=== PATIENT | female | born 1975 ===

== ENCOUNTER → 2022-03-26 15:07 | Outpatient (BNVA) | payer OTHER, SELFPAY | PROVIDERS: PCP Internal Medicine; Visit Provider Nurse Practitioner Family | DX: M62.838 Other muscle spasm (principal); M54.12 Radiculopathy, cervical region; M47.812 Spondylosis without myelopathy or radiculopathy, cervical region; M96.1 Postlaminectomy syndrome, not elsewhere classified | CPT/HCPCS: 99202 ==

== ENCOUNTER 2023-03-26 15:31 | Outpatient (AMB) | payer OTHER, SELFPAY ==
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
[2023-03-26 15:36] VITALS: BP 121/60; PULSE 80; O2SAT 97; BMI 23.0
== END 2023-03-26 16:14 | disposition home or self-care (01) ==
PROVIDERS: PCP Internal Medicine; Visit Provider Nurse Practitioner Family
DX: M96.1 Postlaminectomy syndrome, not elsewhere classified (principal); M47.812 Spondylosis without myelopathy or radiculopathy, cervical region; M54.12 Radiculopathy, cervical region; M62.838 Other muscle spasm; R20.0 Anesthesia of skin; R20.2 Paresthesia of skin
CPT/HCPCS: 99214

== ENCOUNTER → 2023-03-26 15:31 | Outpatient (BNVA) | payer OTHER, SELFPAY | PROVIDERS: PCP Internal Medicine; Visit Provider Nurse Practitioner Family | DX: M96.1 Postlaminectomy syndrome, not elsewhere classified (principal); M47.812 Spondylosis without myelopathy or radiculopathy, cervical region; M54.12 Radiculopathy, cervical region; M62.838 Other muscle spasm; R20.0 Anesthesia of skin; R20.2 Paresthesia of skin | CPT/HCPCS: 99212 ==

== ENCOUNTER 2023-05-27 15:22 | Outpatient (REF) | payer OTHER, SELFPAY | END 2023-05-27 15:23 | disposition home or self-care (01) | LOC: HO.NEURO 15:22 | PROVIDERS: PCP Internal Medicine; Visit Provider Nurse Practitioner Family | DX: R20.0 Anesthesia of skin (principal); R20.2 Paresthesia of skin; M96.1 Postlaminectomy syndrome, not elsewhere classified; M47.812 Spondylosis without myelopathy or radiculopathy, cervical region; M54.12 Radiculopathy, cervical region | CPT/HCPCS: 95886; 95911 ==

== ENCOUNTER → 2023-05-27 15:28 | Outpatient (BNV) | payer OTHER, SELFPAY | PROVIDERS: PCP Internal Medicine; Visit Provider Physical Medicine & Rehabilitation | DX: G56.03 Carpal tunnel syndrome, bilateral upper limbs (principal) | CPT/HCPCS: 95886; 95911 ==

== ENCOUNTER 2023-06-03 15:05 | Outpatient (AMB) | payer OTHER, SELFPAY ==
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
[2023-06-03 15:09] VITALS: BP 128/60; PULSE 60; O2SAT 98; BMI 22.0
== END 2023-06-03 15:26 | disposition home or self-care (01) ==
PROVIDERS: PCP Internal Medicine; Visit Provider Nurse Practitioner Family
DX: M96.1 Postlaminectomy syndrome, not elsewhere classified (principal); G56.03 Carpal tunnel syndrome, bilateral upper limbs; M62.838 Other muscle spasm; M47.812 Spondylosis without myelopathy or radiculopathy, cervical region
CPT/HCPCS: 99214

== ENCOUNTER → 2023-06-03 15:05 | Outpatient (BNVA) | payer OTHER, SELFPAY | PROVIDERS: PCP Internal Medicine; Visit Provider Nurse Practitioner Family | DX: M96.1 Postlaminectomy syndrome, not elsewhere classified (principal); M54.12 Radiculopathy, cervical region; M62.838 Other muscle spasm; M47.812 Spondylosis without myelopathy or radiculopathy, cervical region; G56.03 Carpal tunnel syndrome, bilateral upper limbs | CPT/HCPCS: 99212 ==

== ENCOUNTER 2023-06-30 18:08 | Outpatient (REF) | payer OTHER, SELFPAY ==
--- NOTE | ~2023-06-30 | MR_ITS ---
EXAMINATION: MR CERVICAL SPINE WITHOUT CONTRAST CLINICAL INFORMATION: Paresthesias, recent EMG findings suggestive for a left C8-T1 active radiculopathy COMPARISON: None TECHNIQUE: MRI of the cervical spine was obtained using routine sequences without contrast. FINDINGS: Post surgical changes status post C5-C6 ACDF. Nondiagnostic assessment of the hardware would be better evaluated on CT. The craniocervical junction is intact. Tightening of the normal cervical lordosis. Trace anterolisthesis at C3-C4. Vertebral body heights are normal without acute compression fracture. No suspicious osseous lesion. Multilevel disc desiccation with mild to moderate C4-C5 greater than C6-C7 disc height loss. Suggestion of right eccentric type I/II Modic endplate change at C5-C6, noting susceptibility artifact somewhat limits assessment. There is also slight type I Modic endplate change the left posteriorly at C6-C7. Level by level detail as follows: C2-C3: No spinal canal or neural foraminal stenosis. C3-C4: Minor uncovertebral spurring without spinal canal or neural foraminal stenosis. C4-C5: Disc osteophyte complex with broad-based posterior disc protrusion, bilateral uncovertebral joint hypertrophy, and mild bilateral facet hypertrophy. Mild spinal canal stenosis with slight ventral cord flattening, severe right and mild to moderate left neural foraminal stenosis. C5-C6: ACDF changes with osteophytic ridging and uncovertebral joint hypertrophy. No spinal canal stenosis. Mild to moderate left and mild right neural foraminal narrowing. C6-C7: Disc osteophyte complex with broad-based posterior disc protrusion eccentric to the left, and bilateral uncovertebral spurring. No spinal canal stenosis. Moderate left and mild right neural foraminal stenosis. C7-T1: No spinal canal or neural foraminal stenosis. No cord signal abnormality. No epidural fluid collection, mass, or hematoma. No significant abnormalities of the paraspinal musculature. The flow voids of the major cervical vessels are maintained. The visualized intracranial structures are normal. No demonstrated abnormalities in the visualized neck. MR/MR cervical spine wo con IMPRESSION: 1. Postsurgical changes status post C5-C6 ACDF. Nondiagnostic assessment of the hardware would be better evaluated on CT. Suggestion of right eccentric type I/II Modic endplate change at C5-C6, noting susceptibility artifact somewhat limits assessment. 2. At the superior junctional C4-C5 level, there is adjacent segment degeneration with spondylosis contributing to mild spinal canal stenosis with slight ventral cord flattening, severe right and mild to moderate left neural foraminal stenosis. 3. At the inferior junctional C6-C7 level, there is adjacent segment degeneration with spondylosis contributing to moderate left and mild right neural foraminal stenosis.
== END 2023-06-30 18:09 | disposition home or self-care (01) ==
LOC: HO.MRI 18:08
PROVIDERS: PCP Internal Medicine; Visit Provider Nurse Practitioner Family
DX: R20.0 Anesthesia of skin (principal); R20.2 Paresthesia of skin; M96.1 Postlaminectomy syndrome, not elsewhere classified; M54.12 Radiculopathy, cervical region
CPT/HCPCS: 72141

== ENCOUNTER 2023-07-09 14:34 | Outpatient (AMB) | payer OTHER, SELFPAY ==
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
[2023-07-09 14:41] VITALS: BP 106/55; PULSE 65; O2SAT 99; BMI 22.0
== END 2023-07-09 14:54 | disposition home or self-care (01) ==
PROVIDERS: PCP Internal Medicine; Visit Provider Nurse Practitioner Family
DX: M96.1 Postlaminectomy syndrome, not elsewhere classified (principal); M47.812 Spondylosis without myelopathy or radiculopathy, cervical region; M54.12 Radiculopathy, cervical region; M62.838 Other muscle spasm; G56.03 Carpal tunnel syndrome, bilateral upper limbs; M48.02 Spinal stenosis, cervical region
CPT/HCPCS: 99214

== ENCOUNTER → 2023-07-09 14:34 | Outpatient (BNVA) | payer OTHER, SELFPAY | PROVIDERS: PCP Internal Medicine; Visit Provider Nurse Practitioner Family | DX: M96.1 Postlaminectomy syndrome, not elsewhere classified (principal); M47.812 Spondylosis without myelopathy or radiculopathy, cervical region; M54.12 Radiculopathy, cervical region; M62.838 Other muscle spasm; M48.02 Spinal stenosis, cervical region; G56.03 Carpal tunnel syndrome, bilateral upper limbs | CPT/HCPCS: 99212 ==

== ENCOUNTER 2023-09-29 15:12 | Outpatient (AMB) | payer OTHER, SELFPAY ==
--- NOTE | 2023-09-29 15:13 | MHC.OFFVIS ---
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 States her CTS symptoms started approx 4 years ago and has worsen, especially at night time. No previous treatment. She expresses that her left hand is worse in numbness than her right hand. EMG done 05/27/23. 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 She is left-hand dominant. She states her left is worse than her right. 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 She states her symptoms are constant. [facility] Medical History Hypercholesterolemia Vitamin D deficiency Migraine headache Eating disorder Osteoarthritis cervical spine Diabetes mellitus with ophthalmic manifestation Intestinal malabsorption following gastrectomy Unilateral primary osteoarthritis, left knee Lumbar spondylosis Myofascial pain syndrome of lumbar spine Surgical History Hx of cervical discectomy H/O: hysterectomy H/O tubal ligation Hx of tonsillectomy Hx of gastric bypass Social History (Updated 09/29/23 @ 15:19 by David Wang) Alcohol intake: current Alcohol intake frequency: does not drink Patient Tobacco Use Status: Current everyday Tobacco user Tobacco use type: Cigarette Cigarettes Per Day: 5 Current occupational status: unemployed Current occupation: left hand dominant Review of Systems Const All systems reviewed & are unremarkable except as noted in HPI and below Physical Exam Const General: cooperative and no acute distress Orientation/consciousness: patient oriented x3 Resp Effort & Inspection: normal respiratory effort and able to speak in complete sentences Cardio Peripheral pulses: Peripheral pulses 2+ throughout Neuro General: patient oriented x3 Extrem Other: Bilat wrist normal to inspection. Tenderness over the carpal canal. Numbness and tingling over the median nerve distribution of the right hand. Able to make a full fist and fully extend all fingers. Positive Tinel's. Results Reviewed Results Reviewed: IMPRESSION: 1. This is an abnormal study. 2. There is electrodiagnostic evidence for bilateral moderate-severe median neuropathy at the wrist, consistent with Carpal Tunnel Syndrome. 3. There is no electrodiagnostic evidence for ulnar neuropathy, or brachial plexopathy. 4. There is electrodiagnostic findings suggestive for a left C8-T1 active radiculopathy. Assessment & Plan Assessment & Plan (1) Carpal tunnel syndrome, bilateral: Code(s): G56.03 - Carpal tunnel syndrome, bilateral upper limbs Category: Medical Plan We discussed options which include conservative vs operative treatment. Since the patient has been symptomatic for several months and it is impacting their daily life, the decision was made to undergo carpal tunnel release. We discussed risk, benefits and alternatives. Risk including but not limited to infection, weakness, stiffness, ongoing numbness or tingling. The patient does understand all this and would like to proceed with LEFT carpal tunnel release with Dr Dahl. They will be booked accordingly. Coding Level of Care Code New Pt Level 4 (58758) Diagnoses Carpal tunnel syndrome, bilateral G56.03
== END 2023-09-29 16:12 | disposition home or self-care (01) ==
PROVIDERS: PCP Internal Medicine; Visit Provider Physician Assistant
DX: G56.03 Carpal tunnel syndrome, bilateral upper limbs (principal)
CPT/HCPCS: 99204

== ENCOUNTER → 2023-09-29 15:12 | Outpatient (BNVA) | payer OTHER, SELFPAY | PROVIDERS: PCP Internal Medicine; Visit Provider Physician Assistant | DX: G56.03 Carpal tunnel syndrome, bilateral upper limbs (principal) | CPT/HCPCS: 99202 ==

== ENCOUNTER 2024-01-04 15:00 | Outpatient (RCR) | payer OTHER, SELFPAY ==
--- NOTE | 2023-12-07 17:30 | MHC.PT.EP ---
[facility] [place] Office [place] Office [place] [facility] [address] Julio Prasad [address] [phone] F: [phone] F: [phone] F: [phone] F: [phone] Physical Therapy Plan of Care Date of Evaluation: 12/07/23 Date of Surgery: Diagnosis: Cervical spinal stenosis. Assessment: Pt is a 48 y/o LHD female with Hx of cervical discectomy, lumbar surgery and OA who is referred to PT for eval and treat of spinal stenosis of cervical spine which Pt reports is resulting in decreased tolerance for grasping and holding items in hands, lifting objects of weight, playing/ caring for her young grandchildren, as well as performing static desk work, reaching high shelves and disturbed sleep secondary to Hx of cervical surgery, decreased posture, decreased cervical ROM, decreased B shoulder ROM and strength, decreased B clinical documentation manager strength. Pt is deemed an appropriate candidate to receive skilled PT services to address their physical impairments in order to improve their functional ability. Frequency and Duration: The patient will be seen 2 x/ wk x 3-4 wks. Short Term Goals: Improve baseline pain to < 8/10; initial 10/10. Initiate home program. Finger Buff Sewer Goals: I with home program Pt is comfortable performing. Pt will report at most mildly disturbed sleep; initial: greatly disturbed. Pt will improve NDI by at least 9 points. Pt will be able to perform overhead B shoulder flexion against gravity > 115 degrees; initial 85 degrees B. Pt will improve B clinical documentation manager strength by at least 15psi; initial: R 20psi, L 10psi Treatment Plan: Modalities to reduce pain, spasms and effusion. Manual therapy to restore motion and function. Therapeutic exercise to improve strength and flexibility. Neuromuscular re-education for posture and balance. Therapeutic activities to return to functional activities of daily living. Electronically signed by: Apollo Taylor PT. Please sign and return to therapist. Thank you for your referral.
--- NOTE | 2024-01-04 18:21 | MHC.PT.DC ---
[facility] [place] Office [place] Office [place] [facility] [address] Julio Prasad [address] [phone] F: [phone] F: [phone] F: [phone] F: [phone] Physical Therapy Discharge Report Diagnosis: Cervical spinal stenosis. Date of Surgery: Date of Evaluation: 12/07/23 Date of Discharge: 01/04/24 Treatments to Date: 8 Cancellations to Date: No Shows to Date: Discharge Status: Independent with HEP Patient Elected to Stop Recommend MD Follow-up Discharge Summary: Caty has been an active and motivated participant in her therapy with some mild-moderate improvements towards her goals. Pt persists with cervical and arm pain as well as hand weakness. She felt improved with manual therapy and therapeutic taping which she was instructed on though is recommended to follow up with her MD. Electronically signed by: Apollo Taylor PT. Please sign and return to therapist. Thank you for your referral.
== END 2024-01-04 18:17 | disposition home or self-care (01) ==
LOC: HO.PT 15:00
PROVIDERS: PCP Internal Medicine; Visit Provider Nurse Practitioner Family
DX: M48.02 Spinal stenosis, cervical region (principal); M47.812 Spondylosis without myelopathy or radiculopathy, cervical region; M54.12 Radiculopathy, cervical region
CPT/HCPCS: 97110; 97112; 97140; 97161

== ENCOUNTER 2024-03-09 06:07 | Outpatient (REF) | payer OTHER, SELFPAY | END 2024-03-09 06:08 | disposition home or self-care (01) | LOC: CF 06:07 | PROVIDERS: Visit Provider Internal Medicine | DX: M54.12 Radiculopathy, cervical region (principal) | CPT/HCPCS: 62321; J1100; J2003; Q9967 ==

== ENCOUNTER 2024-03-09 13:24 | Outpatient (AMB) | payer OTHER, SELFPAY ==
[2024-03-09 13:29] VITALS: BP 119/60; PULSE 65; O2SAT 98
--- NOTE | 2024-03-09 13:29 | A.OFFVIS_ITS ---
Vital Signs 03/09/24 13:29 BP 119/60 Blood Pressure Location Rt brachial Position Sitting Pulse 65 Pulse Source Pulse Oximeter Pulse Oximetry (%) 98 Oxygen Delivery Method Room Air Intake Visit Reasons: Left C7-T1 parasagittal interlaminar SILVERIO Allergies No Known Allergies Allergy (Verified 09/29/23 15:18) HPI HPI Left C7-T1 parasagittal interlaminar SILVERIO: Details: Patient presents for scheduled procedure. Denies any recent cough, cold, infection, fever or other significant changes in medical history since last office visit. 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 Unilateral primary osteoarthritis, left knee Lumbar spondylosis Myofascial pain syndrome of lumbar spine Surgical History Hx of cervical discectomy H/O: hysterectomy H/O tubal ligation Hx of tonsillectomy Hx of gastric bypass Social History (Updated 09/29/23 @ 15:19 by David Wang) Alcohol intake: current Alcohol intake frequency: does not drink Patient Tobacco Use Status: Current everyday Tobacco user Tobacco use type: Cigarette Cigarettes Per Day: 5 Current occupational status: unemployed Current occupation: left hand dominant Physical Exam Vital Signs: Last Vital Signs Pulse 65 03/09/24 13:29 BP 119/60 03/09/24 13:29 Pulse Ox 98 03/09/24 13:29 Oxygen Delivery Method Room Air 03/09/24 13:29 Office Procedures Joint Injection/Aspiration Joint Injection/Aspiration Details: Interlaminar epidural steroid injection, C7-T1, left parasaggital After obtaining written consent, pre-procedure blood pressure and heart rate were stable and recorded in the nursing record. The patient was placed in the prone position. The cervicothoracic area was widely prepped with chloraprep and draped in sterile fashion. Fluoroscopic guidance was used to identify the desired interlaminar space and for needle placement. Subcutaneous 0.5% lidocaine was used to anesthetize the skin overlying the target. A 20-gauge Jasmine needle was advanced to the epidural space using loss of resistance to contrast technique under fluoroscopic AP and contralateral oblique views. There was no evidence of heme or CSF and no paresthesias were elicited with needle placement. Confirmation of epidural needle placement was performed with 1cc of omnipaque 180. Next 3 ml 0.5% lidocaine mixed with dexamethasone 10 mg was administered epidurally with no pain elicited on injection. The needle tract tubing was then cleared with 1 ml of 0.5% lidocaine. The needle was removed, skin cleansed and a sterile bandage was applied. The patient tolerated the procedure well and no complications were encountered. Following the procedure the patient's vital signs were stable. The patient was discharged home in good condition with post-procedural instructions. Time Out: Immediately prior to the procedure, the following was verbally confirmed that there is a signed consent form and that the correct patient, planned procedure, site and side are consistent with documentation and that necessary equipment and/or blood products are available prior to the start of the case. Complications: none EBL: <2 cc Coding 55352 - Cervical Epidural/Interlaminar with fluoroscopy Procedure code (CPT) selection complete Assessment & Plan Assessment & Plan (1) Cervical radiculopathy: Code(s): M54.12 - Radiculopathy, cervical region Category: Medical Plan Patient is status post left C7-T1 cervical interlaminar SILVERIO. Patient tolerated procedure well and was discharged home in stable condition with discharge instructions. All questions were answered. We will follow-up via telephone or in clinic to assess response to therapy. A follow-up appointment was made during today's visit. Orders: Orders FL guidance in treatment room Today M54.12 - Radiculopathy, cervical region Coding Level of Care Code Procedure Only Diagnoses Cervical radiculopathy M54.12 CPT Codes Coding - Joint 10: 61640 - Cervical Epidural/Interlaminar with fluoroscopy ([id number])
== END 2024-03-09 13:53 | disposition home or self-care (01) ==
LOC: HO.PMCPRC 13:24
PROVIDERS: PCP Internal Medicine; Visit Provider Internal Medicine
DX: M54.12 Radiculopathy, cervical region (principal)
CPT/HCPCS: 62321